=== PATIENT | female | born 1980 | race Caucasian/White ===

== ENCOUNTER 2021-09-18 12:06 | Inpatient (IN) | payer OTHER, MEDICAID ==
[~2021-09-18] VITALS: Ht 162.6 cm; Wt 91.1 kg
--- NOTE | ~2021-09-18 | EMS ---
[address] [address] EMS Patient Care Report Name: DOREEN CLAIRE Room: [facility]..#: [id number] Admission: Attend Phys: Discharge: Date of : 84 Report #: [id number] THIS REPORT FOR: //name// Report Transmitted: 09/18/2021 12:35 EMS Care Summary KARINE Reddy [place] Incident 1225 @ 09/18/2021 11:20 Incident Location [address] [place] [address] Patient DOREEN CLAIRE Female, 41 Years 1980 Patient Address [address] [place] [address] Patient History Hypertension (HTN), Patient Allergies , Patient Medications Lyrica, Lisinopril, Chief Complaint Nausea Disposition Transported No Lights/[place] Dispatch Reason Sick Person Transported To [facility] Narrative Dispatched to address noted for a person with COVID-19 that is nauseous. [facility] en route and on scene at time noted. Arrived and found the of the patient waving us down. stated that his is naked on the bathroom floor and has COVID-19. Patient has been refusing food for the past [address] [address] EMS Patient Care Report Name: DOREEN CLAIRE Room: [facility]#: [id number] Admission: Attend Phys: Discharge: Date of : 84 Report #: [id number] has been nauseous and vomiting as well as weak and short of breath. Patient was found as he stated, alert and oriented on the floor. Patient did not appear to have any life threats or be in shock. Patient was able to sit up with help and we had family gather some clothes for her to put on. Patient stated some mild shortness of breath as a secondary complaint and stated that she did not care what hospital we took her to. Patient was able to walk to stretcher outside and was then buckled in. [facility] where on high volume and having just come from [facility] I informed the patient that she may have an extended care time there. [facility] was then chosen and family agreed to it. Once in ambulance, vitals where taken at time noted and oxygen saturation was low as noted. O2 and oral zofran given along with an emesis bag. Patient stated that she did not want to live like this anymore and wanted it to go away. While en route, vitals where taken at time noted. Patient had no major change noted. Radio report was given at time noted. Arrived and took the patient to triage to be checked in. RN was given verbal report and signed for patient and patient signed for self. END REPORT EMT-P William Chen Initial Vitals @11:40SpO2: 84, @11:48SpO2: 90, @11:53SpO2: 90, @11:56SpO2: 90, @11:40P: 116,R: 16,BP: 146/72, @11:56P: 99,R: 16,BP: 115/75, @11:40GCS: 15, @11:56GCS: 15, @11:34 Assessments @11:34MENTAL:SKIN:HEENT:LUNG SOUNDS:ABDOMEN:PELVIS//GI:EXTREMITIES:PULSE:NEURO: Impression COVID-19 - Confirmed by testing Procedures @11:41 Oxygen Complications: , Response: Unchanged @11:44 Ondansetron - 8.000 Milligrams (mg) - Oral Response: Unchanged Timeline 11:45,Call Received 10:58,Dispatch Notified 10:58,Psap Call 11:20,Dispatched 11:20,[place] [address] EMS Patient Care Report Name: DOREEN CLAIRE Room: [facility].#: [id number] Admission: Attend Phys: Discharge: Date of : 84 Report #: [id number] 11:32,On Scene 11:34,At Patient 11:34,BP: / M,PULSE: ,RR: R,SPO2: Ox,ETCO2: ,BG: ,PAIN: ,GCS: , 11:40,BP: / M,PULSE: ,RR: R,SPO2: 84 Ox,ETCO2: ,BG: ,PAIN: ,GCS: , 11:40,BP: 146/72 M,PULSE: 116,RR: 16 R,SPO2: Ox,ETCO2: ,BG: ,PAIN: ,GCS: , 11:40,BP: / M,PULSE: ,RR: R,SPO2: Ox,ETCO2: ,BG: ,PAIN: ,GCS: 15, 11:41,Oxygen Complications: ,,Response: Unchanged 11:44,Depart Scene 11:44,Ondansetron - 8.000 Milligrams (mg) - Oral,Response: Unchanged 11:48,BP: / M,PULSE: ,RR: R,SPO2: 90 Ox,ETCO2: ,BG: ,PAIN: ,GCS: , 11:53,BP: / M,PULSE: ,RR: R,SPO2: 90 Ox,ETCO2: ,BG: ,PAIN: ,GCS: , 11:56,BP: / M,PULSE: ,RR: R,SPO2: 90 Ox,ETCO2: ,BG: ,PAIN: ,GCS: , 11:56,BP: 115/75 M,PULSE: 99,RR: 16 R,SPO2: Ox,ETCO2: ,BG: ,PAIN: ,GCS: , 11:56,BP: / M,PULSE: ,RR: R,SPO2: Ox,ETCO2: ,BG: ,PAIN: ,GCS: 15, 12:01,At Destination 12:11,Call Closed Disclaimer v1.1 Copyright 2021 [employer] This EMS Care Summary contains data elements from the applicable legal record (which may be displayed differently). It is designed to provide pertinent information for the following purposes: continuity of care, clinical quality, and state data reporting. The complete legal record is available to ED staff and administrators of the receiving hospital in [employer] Patient Tracker. All data is provided "as is."
[2021-09-18 12:25] VITALS: BP 110/68
[2021-09-18] MEDS ORDERED: LISINOPRIL-HCT1 EAC2 PO (12:36)
[2021-09-18] MEDS ORDERED: LYRICA25 MG PO (12:36)
[2021-09-18] MEDS ORDERED: CARBAMAZEPINE100 M2 PO (12:36)
--- NOTE | 2021-09-18 12:37 | NUR ---
PT TRIAGED IN THE TRIAGE ROOM. PT HAS EVEN AND UNLABORED RR. PT IS ABLE TO SPEAK IN FULL SENTENCES. PT PLACED ON O2 IN THE TRIAGE ROOM WHILE SITTING IN A WHEELCHAIR. THIS NURSE WENT TO THE BACK TO NOTIFIY DR. CANDELARIO OF LOW O2 SAT AND TO SEE IF THERE WAS AN AVAILABLE ROOM. ED REGISTRATION CALLED AND PT WAS LYING ON THE FLOOR IN TRIAGE. PT SAYING SHE NEEDS TO LAY DOWN. PT NOT WANTING TO COOPERATE. THIS RN GOT HELP OF BOLT MAN AND PT WAS ASSISTED BACK TO THE WHEELCHAIR. PT WAS THEN TAKEN TO ED ROOM #16. PT RR IS EVEN AND UNLABORED. PT COLOR IS PINK. O2 SAT 94%.
[2021-09-18 13:21] LABS: ABSOLUTE LYMPHOCYTES 0.9 thou/uL (0.8-5.3); ABSOLUTE MONOCYTES 0.3 thou/uL (0.0-1.2); ABSOLUTE NEUTROPHILS 4.9 thou/uL (1.6-8.1); BASOPHILS 0.1 %; HEMOGLOBIN 13.4 gm/dL (12.0-15.0); LYMPHOCYTES 14.3 %; MCH 32.7 pg (26.0-34.0); MCHC 35.3 g/dL (28.0-37.0); MCV 92.6 fL (80.0-100.0); MONOCYTES 5.2 %; MPV 7.8 fl. (7.2-11.1); NUCLEATED RBCS 0 /100WBC; PLATELET COUNT* 294 thou/uL (150-400); POLYS 80.4 %; RDW-CV 14.1 % (10.5-14.5); WBC 6.1 thou/uL (4.0-11.0)
[2021-09-18 13:29] LABS: CREATININE 1.1 mg/dL (0.6-1.3)
[2021-09-18 13:40] LABS: ALBUMIN 3.4 g/dL (3.4-5.0); TOTAL BILIRUBIN 0.3 mg/dL (<0.1-1.0); TOTAL PROTEIN 7.8 g/dL (6.4-8.2)
[2021-09-18] MEDS ORDERED: LISINOPRIL-HCT1 EAC1 PO (17:48)
[2021-09-18 20:18] LABS: PCO2 29.9 mmHg (35.0-45.0); pH 7.426 (7.340-7.450)
[2021-09-18 21:28] VITALS: BP 106/64
[2021-09-19 02:29] VITALS: BP 117/75
[2021-09-19 03:29] LABS: HEMATOCRIT 36.9 % (37.0-47.0); HEMOGLOBIN 12.7 gm/dL (12.0-15.0); MCH 32.3 pg (26.0-34.0); MCHC 34.3 g/dL (28.0-37.0); MCV 94.2 fL (80.0-100.0); MPV 7.7 fl. (7.2-11.1); RBC 3.92 mil/uL (4.20-5.00); RDW-CV 14.4 % (10.5-14.5); WBC 7.4 thou/uL (4.0-11.0)
[2021-09-19 04:06] LABS: CALCIUM 7.6 mg/dL (8.5-10.1); CREATININE 0.9 mg/dL (0.6-1.3); MAGNESIUM 2.3 mg/dL (1.8-2.4); TOTAL BILIRUBIN 0.3 mg/dL (<0.1-1.0); TOTAL PROTEIN 7.2 g/dL (6.4-8.2)
[2021-09-19 06:33] VITALS: BP 111/68
--- NOTE | 2021-09-19 06:51 | NUR ---
PT HAD AN UNWITTNESSED FAL WHILE HURRYING TO GET TO THE COMMODE. PT STATED SHE THOUGHT SHE WAS GOING TO BE INCONTINENT AND WAS RUSHING. NO NOTED INJURIES. PT DENIES ANY PAIN. NOTIFIED CHARGE NURSE REGINO PHILLIPS AND DR METCALF. REINFORCED CALL BELLUSE BED ALARM ON.
[2021-09-19 10:01] VITALS: BP 113/57
--- NOTE | 2021-09-19 13:17 | EKG ---
[place] [address] ELECTROCARDIOGRAM REPORT Name: DOREEN CLAIRE Room: [place] [address] ADM IN [facility]#: [id number] Admission: 09/18/21 Attend Phys: Dilshad Steward Discharge: Date of : 84 Date of Service: 09/18/21 1249 Report #: [id number] THIS REPORT FOR: //name// [facility] ED Test Date: 2021-09-18 Test Time: 12:49:20 Pat Name: DOREEN CLAIRE Department: Room: [facility] Gender: F Treasury Assistant: MILAGROS : 1980 Requested By: Allen Gray Order Number: [id number] MD: Duane Hatfield Measurements Intervals [place] Rate: 104 P: 56 IN: 158 QRS: 29 QRSD: 98 T: 70 QT: 350 QTc: 461 Interpretive Statements Sinus tachycardia RSR' in V1 or V2, right VCD Nonspecific T abnrm, anterolateral leads; consider ischemia Baseline wander in lead(s) V1,V2 No previous ECG available for comparison Electronically Signed On 09-19-2021 13:16:50 FINANCIAL SERVICES AGENT by Duane Hatfield [email or web address] <ELECTRONICALLY SIGNED> By: Duane Hatfield MD, FAC 09/19/21 1316 1249 1249 Duane Hatfield MD, FAC /EPI
[2021-09-19 14:33] VITALS: BP 101/62
--- NOTE | 2021-09-19 18:04 | NUR ---
PT SUSTAINING 87-89% ON HIGH FLOW. RESPIRATORY CALLED TO INCREASE OXYGEN ON MACHINE.
[2021-09-19 18:27] VITALS: BP 111/60
--- NOTE | 2021-09-19 20:00 | NUR ---
THIS NURSE TO BEDSIDE TO CHECK ON PATIENT DUE TO OXYGEN SATS DROPPING ON THE CENTRAL MONITOR, SHOWING OXYGEN SAT 77% WITH GOOD WAVEFORM. AT BEDSIDE, THIS NURSE FINDS PATIENT ON BEDSIDE COMMODE WITHOUT HER OXYGEN ON. THIS NURSE EDUCATED PATIENT ON THE IMPORTANCE OF LEAVING HER OXYGEN ON. PATIENT VERBALIZES UNDERSTANDING. THIS NURSE HELPED PATIENT PUT HER OXYGEN BACK ON AND HELPED BACK IN BED.
--- NOTE | 2021-09-19 21:30 | NUR ---
THIS NURSE BACK TO PATIENT BEDSIDE DUE TO OXYGEN SAT LEVELS DROPPING ON THE MONITOR. THIS NURSE EDUCATED PATIENT ON LEAVING OXYGEN IN HER NOSE. PT STATES "I DON'T WANT TO, I JUST WANT TO ". DR. LUNSFORD PULLED TO PATIENT BEDSIDE TO EDUCATE PATIENT ON THE IMPORTANCE OF LEAVING OXYGEN IN HER NOSE. PATIENT FINALLY AGREED TO LEAVE OXYGEN IN HER. PT SATS 85-89% ON HI-UMM OXYGEN AT 40 L.
[2021-09-19 22:27] VITALS: BP 114/63
--- NOTE | 2021-09-19 22:30 | NUR ---
THIS NURSE TO PATIENT BEDSIDE AGAIN FOR OXYGEN SAT ALARM SAYING HER OXYGEN SATS WERE IN THE 60S. RT CALLED TO BEDSIDE TO EVALUATE PATIENT AND PLACE HER ON BIPAP AT THIS TIME. PT AGREED TO WEARING THE BIPAP MASK AND LEAVING IT ON.
[2021-09-19 22:33] LABS: BE 0.9 mmol/L (-2 to +3); PCO2 32.6 mmHg (35.0-45.0); pH 7.482 (7.340-7.450)
--- NOTE | 2021-09-19 22:39 | NUR ---
PT PLACED ON BIPAP AT THIS TIME.
--- NOTE | 2021-09-19 22:50 | NUR ---
THIS NURSE TO PATIENT BEDSIDE AGAIN FOR OXYGEN SAT LEVELS SHOWING IN THE 40'S. AT BEDSIDE, THIS NURSE FOUND PATIENT NOT WEARING HER BIPAP MASK AT ALL. PATIENT STATES "I DON'T WANT TO!" THIS NURSE EDUCATED PATIENT ON THE IMPORTANCE OF PUTTING HER MASK BACK ON AND LEAVING IT ON. PT REFUSING BIPAP MASK AT THIS TIME. OXYGEN SATS REMAIN IN THE 40'S. PT ATTEMPTING TO CLIMB OUT OF BED WITH HER OXYGEN SATS DROPPING TO 29% ON ROOM AIR DUE TO HER REFUSING ALL OXYGEN. DR. LUNSFORD CALLED TO BEDSIDE TO EVAULATE PATIENT. PATIENT ASSISTED BACK INTO BED AND PREPARED FOR INTUBATION.
--- NOTE | 2021-09-19 23:00 | NUR ---
MEDICATIONS GIVEN TO PREPARE FOR INTUBATION, SEE EMAR. PT INTUBATED AT THIS TIME.
[2021-09-20] VITALS (7 sets, daily range): BP systolic 99–123; BP diastolic 61–83
--- NOTE | 2021-09-20 00:30 | NUR ---
VERSED DRIP INITIATED AT THIS TIME, INFUSING INTO R SUBCLAVIAN CENTRAL LINE. MEDICATION PUT IN BY PHARMACY BUT DOES NOT APPEAR ON THIS NURSE'S EMAR TO BE SCANNED.
[2021-09-20 00:42] LABS: PCO2 33.2 mmHg (35.0-45.0); PO2 63.4 mmHg (75.0-100.0); pH 7.431 (7.340-7.450)
[2021-09-20 03:54] LABS: HEMATOCRIT 29.8 % (37.0-47.0); MCH 33.2 pg (26.0-34.0); MCHC 35.1 g/dL (28.0-37.0); MCV 94.7 fL (80.0-100.0); MPV 7.8 fl. (7.2-11.1); RBC 3.15 mil/uL (4.20-5.00); RDW-CV 14.7 % (10.5-14.5); WBC 5.2 thou/uL (4.0-11.0)
[2021-09-20 04:17] LABS: CREATININE 0.8 mg/dL (0.6-1.3)
[2021-09-20 04:27] LABS: POTASSIUM 2.4 mmol/L (3.5-5.1)
[2021-09-20 04:33] LABS: HEMOGLOBIN 10.5 gm/dL (12.0-15.0)
--- NOTE | 2021-09-20 12:28 | NUR ---
Pt is admitted to the hospital on 09/18/21 with Covid 19/Respiratory Failure. Pt has now been moved to the ICU and is Intubated and Sedated. Called enriqueta Moore at: to complete assessment. Spoke both to dtr and spouse of whom pt lives with in a house with stairs to enter. Pt was previously indepedent in ADL's and Mobility. Pt fills prescription at the [facility] on [address] in [place]. Pt has seen her PCP in the last year. No hs of HH/SNF/ or DME. Spouse reports pt does not have a DPOA. Daughter tearful during the conversation - provided empathy and support. CM to continue to follow for discharge planning.
--- NOTE | 2021-09-20 19:24 | NUR ---
PT ARRIVED TO ICU 1 AT 0850. PT INTUBATED AND ON VENTILATOR. SEE CHARTING FOR SETTING. OGT TO LIS. ZAMORA INTACT AND PATENT DRAINING CIELO URINE TO BEDSIDE BAG. NO ACUTE DISTRESS AT THAT TIME PT HAS HAD SEVERAL EPISODES OF DESATING. PT RECOVERS WITH REPOSITONING AND SUCTIONING. MONITORS INTACT. WILL CONTINUE OT MONITOR
[2021-09-21] VITALS (30 sets, daily range): BP systolic 96–122; BP diastolic 54–82
[2021-09-21 00:51] LABS: HEMATOCRIT 36.3 % (37.0-47.0); MCHC 35.2 g/dL (28.0-37.0); MCV 93.7 fL (80.0-100.0); NUCLEATED RBCS 0 /100WBC; PLATELET COUNT* 361 thou/uL (150-400); RBC 3.87 mil/uL (4.20-5.00); WBC 8.2 thou/uL (4.0-11.0)
[2021-09-21 00:53] LABS: HEMOGLOBIN 12.8 gm/dL (12.0-15.0)
[2021-09-21 00:59] LABS: ALBUMIN 2.4 g/dL (3.4-5.0); CREATININE 0.7 mg/dL (0.6-1.3); MAGNESIUM 2.2 mg/dL (1.8-2.4); TOTAL BILIRUBIN 0.7 mg/dL (<0.1-1.0); TOTAL PROTEIN 6.6 g/dL (6.4-8.2)
[2021-09-21 01:00] LABS: POTASSIUM 3.6 mmol/L (3.5-5.1)
[2021-09-21 02:23] LABS: ABSOLUTE LYMPHOCYTES 0.7 thou/uL (0.8-5.3); ABSOLUTE MONOCYTES 0.4 thou/uL (0.0-1.2); ABSOLUTE NEUTROPHILS 7.1 thou/uL (1.6-8.1)
[2021-09-21 02:24] LABS: PLATELET ESTIMATE ADEQUATE
[2021-09-21 07:57] LABS: BE -0.8 mmol/L (-2 to +3); PCO2 34.8 mmHg (35.0-45.0); PO2 75.6 mmHg (75.0-100.0); pH 7.435 (7.340-7.450)
--- NOTE | 2021-09-21 15:27 | NUR ---
ICU Rounds: Remains Intubated and Sedated Isolation: Presently in Covid Isolation Intubated: 09/20/21 Living Situation: Lives with spouse and daughter DPOA: None Oxyen Needs: 60%Fio2 and 11 of Peep CM to continue to follow for discharge needs.
--- NOTE | 2021-09-21 22:37 | NUR ---
I ASSUMED CARE OF THE PATIENT FROM [facility] AN ICU TRANSFER AT 1740. SHE IS SEDATED AND INTUBATED. BED IS IN THE LOW LOCKED POSITION AND ISOLATION IS MAINTAINED. PATIENT NEEDS ARE MET DURING HOURLY ROUNDING. CHAO WOULD LIKE FOR THE PATIENT TO PRONE AFTER TRANSFER. TUBE FEEDS SHOULD BE RESUMED OF 2 CARLOS WITH A GOAL OF 35. PROPOFOL IS TO BE TITRATED TO OFF DUE TO HIGH TRIGLYCIRIDES. FECAL MANAGMENT SYSTEM IS IN PLACE. SHE WITHDRAWLS TO PAIN AND IS IN SOFT RESTRAINTS. WILL CONTINUE TO MONITOR.
[2021-09-22] VITALS (17 sets, daily range): BP systolic 100–129; BP diastolic 60–83
[2021-09-22 04:26] LABS: ABSOLUTE LYMPHOCYTES 0.4 thou/uL (0.8-5.3); ABSOLUTE MONOCYTES 0.4 thou/uL (0.0-1.2); ABSOLUTE NEUTROPHILS 9.3 thou/uL (1.6-8.1); HEMATOCRIT 32.6 % (37.0-47.0); LYMPHOCYTES 4.2 %; MCH 31.9 pg (26.0-34.0); MCHC 33.6 g/dL (28.0-37.0); MCV 95.2 fL (80.0-100.0); MONOCYTES 4.4 %; MPV 7.8 fl. (7.2-11.1); NUCLEATED RBCS 0 /100WBC; PLATELET COUNT* 397 thou/uL (150-400); POLYS 91.4 %; RBC 3.43 mil/uL (4.20-5.00); RDW-CV 15.1 % (10.5-14.5); WBC 10.2 thou/uL (4.0-11.0)
[2021-09-22 04:48] LABS: CALCIUM 7.6 mg/dL (8.5-10.1); CREATININE 0.7 mg/dL (0.6-1.3); MAGNESIUM 2.2 mg/dL (1.8-2.4); POTASSIUM 3.5 mmol/L (3.5-5.1); TOTAL BILIRUBIN 0.4 mg/dL (<0.1-1.0); TOTAL PROTEIN 6.4 g/dL (6.4-8.2)
[2021-09-22 04:59] LABS: PHOSPHORUS* 2.2 mg/dL (2.5-4.9)
[2021-09-22 09:59] LABS: BE -2.4 mmol/L (-2 to +3); PCO2 28.6 mmHg (35.0-45.0)
[2021-09-22 10:02] LABS: PO2 58.7 mmHg (75.0-100.0)
--- NOTE | 2021-09-22 16:00 | NUR ---
ASSUMED CARE OF PT FROM MARY PLASCENCIA RN. PLEASE SEE DOCUMENTED ASSESSMENT. PT CURRENTLY ON FENTANYL, VERSED, AND PROPOFOL GTTS. PT WILL TRY TO OPEN EYES TO COMMAND. SINUS TACHY NOTED ON MONITOR. LUNGS COARSE. PT HAS RIGHT UPPER ARM PICC. DR. GUIDRY HERE. NEW ORDERS RCV'D. PT GIVEN ALBUMIN, THEN LASIX. POTASSIUM STARTED AFTER LASIX ADMINISTRATION. TUBE FEEDS WILL MOST LIKELY BE STARTED TOMORROW PER DR. GUIDRY. ET ADVANCED 2 CM BY RT, CONFIRMED BY XRAY. PT TO PRONE IF TOLERATED. PER DR. GUIDRY, NURSING TO DC PROPOFOL. CAN GO UP TO MAX DOSE OF VERSED 15MG/HOUR AND FENTANYL 150 MCG/HOUR. PROPOFOL WAS DC'D, FENTANYL GTT INCREASED TO 150 MCG/HR. REPORT GIVEN TO LINA YU.
--- NOTE | 2021-09-22 17:31 | NUR ---
CM FOLLOWUP PT NOT MED CLEAR AND ON VENT. CM TO FOLLOW FOR FUTURE DC NEEDS.
--- NOTE | 2021-09-22 17:52 | NUR ---
Patient restful on the ventilator with Fentanyl 100 mcg/hr, Versed 1omg/hr and Propofol 5mcg/kg/min. Spoke with daughter today and update provided. No tube feeding infusing at this time with potential to prone. HR Sinus Tach, BP with in normal limits. Dark urine in sexton bag. soft bilat wrist restraints. R upper arn PIC line. Dr Moser here to see patient at this time.
--- NOTE | 2021-09-22 19:49 | NUR ---
PT WAS GIVEN 4 UNITS OF LISPRO INSULIN FOR BLOOD GLUCOSE LEVEL OF 222. UNABLE TO CHART IN COMPUTER D/T PROFILE BEING LOCKED.
[2021-09-23] VITALS (19 sets, daily range): BP systolic 11–123; BP diastolic 57–84
[2021-09-23 05:14] LABS: ABSOLUTE LYMPHOCYTES 0.7 thou/uL (0.8-5.3); ABSOLUTE MONOCYTES 0.6 thou/uL (0.0-1.2); ABSOLUTE NEUTROPHILS 10.7 thou/uL (1.6-8.1); BASOPHILS 0.1 %; EOSINOPHILS 0.1 %; HEMATOCRIT 29.9 % (37.0-47.0); HEMOGLOBIN 9.9 gm/dL (12.0-15.0); LYMPHOCYTES 5.8 %; MCH 32.3 pg (26.0-34.0); MCHC 33.3 g/dL (28.0-37.0); MCV 96.9 fL (80.0-100.0); MONOCYTES 4.7 %; MPV 8.1 fl. (7.2-11.1); NUCLEATED RBCS 0 /100WBC; POLYS 89.3 %; RBC 3.08 mil/uL (4.20-5.00); RDW-CV 15.3 % (10.5-14.5)
[2021-09-23 05:15] LABS: PLATELET COUNT* 511 thou/uL (150-400)
--- NOTE | 2021-09-23 05:23 | NUR ---
ASSUMED PT CARE AT APPROX 1930. PT IS SEDATED, GCS 6 (E1 V1 M4) PT IS TRACING ST ON THE OFFICE 365 CONSULTANT. ET TUBE INTACT, 23cm AT THE LIP, CONNECTED TO VENTILATOR AT PRESCRIBED SETTINGS. OG TUBE INTACT,60cm AT THE LIP, WITH SMALL AMOUNT BILOUS RESIDUAL. FECAL TUBE INTACT WITH MODERATE AMOUTN OF LIQUID YELLOWISH BROWN STOOL. ZAMORA CATHETER INTACT WITH DARK YELLOW TO CIELO OUTPUT. VERSED AND FENTANYL TITRATED ORDERED. FIO2 INCREASED TO 100% TO KEEP spO2 >92%. PT IS CLOSELY MONITORED.
[2021-09-23 05:35] LABS: ALBUMIN 2.6 g/dL (3.4-5.0); CREATININE 0.8 mg/dL (0.6-1.3); POTASSIUM 3.7 mmol/L (3.5-5.1); TOTAL BILIRUBIN 0.6 mg/dL (<0.1-1.0); TOTAL PROTEIN 6.5 g/dL (6.4-8.2)
[2021-09-23 05:51] LABS: PHOSPHORUS* 2.5 mg/dL (2.5-4.9)
--- NOTE | 2021-09-23 07:15 | NUR ---
CHANGE OF SHIFT REPORT GIVEN PATIENT SEDATED AND ON VENT ASSUMED PATIENT CARE
[2021-09-23 09:33] LABS: BE 5.2 mmol/L (-2 to +3); PCO2 38.1 mmHg (35.0-45.0); PO2 76.4 mmHg (75.0-100.0); pH 7.494 (7.340-7.450)
--- NOTE | 2021-09-23 11:00 | NUR ---
patient felt warm to touch temperature checked and temporal 99.5 dr notified and treated with tylenol and cool cloth to forehaed will continue to monitor
--- NOTE | 2021-09-23 13:14 | EKG ---
[place] [address] ELECTROCARDIOGRAM REPORT Name: DOREEN CLAIRE Room: [address] ADM IN [facility]#: [id number] Admission: 09/18/21 Attend Phys: Dilshad Steward Discharge: Date of : 84 Date of Service: 09/23/21 1250 Report #: [id number] THIS REPORT FOR: //name// [facility] Test Date: 2021-09-23 Test Time: 12:50:45 Pat Name: DOREEN CLAIRE Department: Room: [address] Gender: F Chief Knowledge Officer: ASAF : 1980 Requested By: Colby Boyle Order Number: [id number] Reading MD: Duane Hatfield Measurements Intervals [place] Rate: 135 P: 44 AK: 124 QRS: 42 QRSD: 67 T: 57 QT: 338 QTc: 507 Interpretive Statements Sinus tachycardia RSR' in V1 or V2, probably normal variant Minor nonspecific ST-T alterations Prolonged QT interval Baseline wander in lead(s) I,III,aVL,aVF Compared to ECG 09/18/2021 12:49:20 Sinus rate has increased Anterior precordial ST segment depression has remitted Prolonged QT interval now present Electronically Signed On 09-23-2021 13:14:25 WINDING INSPECTOR by Duane Hatfield [email or web address] <ELECTRONICALLY SIGNED> By: Duane Hatfield MD, [facility] 09/23/21 1314 1250 1250 Duane Hatfield MD, [facility] /EPI
--- NOTE | 2021-09-23 14:00 | NUR ---
patient with 2 rings on l hand removed due to edema secured and labeled and sent to security daughter also notified stated she would paick them up tomorrow
[2021-09-23 16:03] LABS: URINE BILIRUBIN NEGATIVE (Negative); URINE BLOOD 3+ (Negative); URINE CLARITY CLEAR; URINE COLOR YELLOW; URINE GLUCOSE-RANDOM NEGATIVE (Negative); URINE KETONES 1+ (Negative); URINE LEUKOCYTES-REFLEX NEGATIVE (Negative); URINE NITRITE-REFLEX NEGATIVE (Negative); URINE PROTEIN 2+ (Negative); URINE UROBILINOGEN 0.2 E.U./dl (0.2-1.0)
[2021-09-23 16:12] LABS: BACTERIA-REFLEX None Seen /HPF (None Seen); CASTS None Seen /LPF (None Seen); CRYSTALS None Seen /LPF (None Seen); SQUAMOUS NONE SEEN /LPF (0-3); URINE RBC 3-10 Few /HPF (0-2); URINE WBC-REFLEX None Seen /HPF (0-5)
--- NOTE | 2021-09-23 16:21 | NUR ---
CM FOLLOWUP PT NOT MED CLEAR AND ON VENT. CM TO FOLLOW FOR FUTURE DC NEEDS.
[2021-09-23 16:53] LABS: CREATININE 0.7 mg/dL (0.6-1.3); POTASSIUM 3.9 mmol/L (3.5-5.1)
[2021-09-24] VITALS (25 sets, daily range): BP systolic 92–124; BP diastolic 56–84
[2021-09-24 05:05] LABS: HEMATOCRIT 31.5 % (37.0-47.0); HEMOGLOBIN 10.7 gm/dL (12.0-15.0); MCHC 33.9 g/dL (28.0-37.0); MCV 97.5 fL (80.0-100.0); MPV 8.1 fl. (7.2-11.1); NUCLEATED RBCS 0 /100WBC; PLATELET COUNT* 491 thou/uL (150-400); RBC 3.24 mil/uL (4.20-5.00); RDW-CV 15.1 % (10.5-14.5); WBC 12.4 thou/uL (4.0-11.0)
--- NOTE | 2021-09-24 05:06 | NUR ---
ASSUMED PT CARE AT APPROX 1915. PT IS SEDATED, (E1V1M4) GCS 6. PT IS INTUBATED ON VENTILATOR AT PRESCRIBED SETTINGS. PT IS TRACING ST ON THE ASSEMBLY LEADER. PT HAS BEEN FEBRILE, Tmax 102.3, TYLENOL AND COOLING MEASURES DONE, WITH SOME IMPROVEMENT.IV ANTIBIOTICS STARTED ORDERED. SOME EPISODES OF DESATURATIONS NOTED, IMPROVES WITH SUCTIONING AND REPOSITIONING. PT ON CONTINUOUS TUBE FEEDING, WELL TOLERATED. PT IS CLOSELY MONITORED.
[2021-09-24 05:41] LABS: ALBUMIN 2.5 g/dL (3.4-5.0); CREATININE 0.9 mg/dL (0.6-1.3); POTASSIUM 3.9 mmol/L (3.5-5.1); TOTAL BILIRUBIN 0.5 mg/dL (<0.1-1.0); TOTAL PROTEIN 6.8 g/dL (6.4-8.2)
[2021-09-24 07:06] LABS: ABSOLUTE LYMPHOCYTES 0.7 thou/uL (0.8-5.3)
[2021-09-24 07:07] LABS: ABSOLUTE EOSINOPHILS 0.1 thou/uL (0.0-0.7); ABSOLUTE MONOCYTES 0.5 thou/uL (0.0-1.2); PLATELET ESTIMATE ADEQUATE
[2021-09-24 10:08] LABS: BE 3.1 mmol/L (-2 to +3); PCO2 40.4 mmHg (35.0-45.0); PO2 66.7 mmHg (75.0-100.0); pH 7.448 (7.340-7.450)
[2021-09-24 11:53] LABS: ABSOLUTE EOSINOPHILS 0.1 thou/uL (0.0-0.7); ABSOLUTE LYMPHOCYTES 0.8 thou/uL (0.8-5.3); ABSOLUTE MONOCYTES 0.6 thou/uL (0.0-1.2); BASOPHILS 0.2 %; EOSINOPHILS 0.6 %; HEMATOCRIT 30.7 % (37.0-47.0); HEMOGLOBIN 10.3 gm/dL (12.0-15.0); MCH 32.4 pg (26.0-34.0); MCHC 33.6 g/dL (28.0-37.0); MCV 96.4 fL (80.0-100.0); MONOCYTES 4.2 %; MPV 7.9 fl. (7.2-11.1); NUCLEATED RBCS 0 /100WBC; PLATELET COUNT* 478 thou/uL (150-400); RBC 3.18 mil/uL (4.20-5.00); RDW-CV 14.8 % (10.5-14.5); WBC 15.6 thou/uL (4.0-11.0)
[2021-09-24 12:00] LABS: CALCIUM 7.5 mg/dL (8.5-10.1); CREATININE 0.8 mg/dL (0.6-1.3); MAGNESIUM 1.9 mg/dL (1.8-2.4); POTASSIUM 3.9 mmol/L (3.5-5.1)
[2021-09-24 18:49] LABS: CREATININE 0.9 mg/dL (0.6-1.3); MAGNESIUM 2.1 mg/dL (1.8-2.4); POTASSIUM 3.6 mmol/L (3.5-5.1)
[2021-09-25] VITALS (25 sets, daily range): BP systolic 100–135; BP diastolic 58–86
[2021-09-25 04:42] LABS: ABSOLUTE BASOPHILS 0.1 thou/uL (0.0-0.2); ABSOLUTE MONOCYTES 0.6 thou/uL (0.0-1.2); ABSOLUTE NEUTROPHILS 15.1 thou/uL (1.6-8.1); BASOPHILS 0.4 %; EOSINOPHILS 0.3 %; HEMATOCRIT 34.3 % (37.0-47.0); HEMOGLOBIN 11.4 gm/dL (12.0-15.0); LYMPHOCYTES 6.1 %; MCH 32.3 pg (26.0-34.0); MCHC 33.2 g/dL (28.0-37.0); MCV 97.1 fL (80.0-100.0); MONOCYTES 3.3 %; MPV 8.2 fl. (7.2-11.1); NUCLEATED RBCS 0 /100WBC; PLATELET COUNT* 472 thou/uL (150-400); POLYS 89.9 %; RBC 3.53 mil/uL (4.20-5.00); RDW-CV 15.5 % (10.5-14.5); WBC 16.8 thou/uL (4.0-11.0)
[2021-09-25 05:00] LABS: PHOSPHORUS* 2.9 mg/dL (2.5-4.9)
--- NOTE | 2021-09-25 05:16 | NUR ---
ASSUMED PT CARE AT APPROX. 1945. PT IS INTUBATED AND SEDATED. RN AT BEDSIDE AT APPROX. 1999. PT'S IV PUMP ALARMING R/T FENTANYL GTT BAG NEEDING REPLACED. NEW MEDICATION BAG HUNG. RN BEGAN CALCULATING GTT'S AND NOTICED THE BAGS WERE NEEDING TO BE REPLACED V64-77EPM. RN PHONED PHARMACY TO CONFIRM. PHARMACY ADVISED RN TO RECHECK PUMP BC MEDICATION SHOULD LAST AT LEAST 6 HRS. THIS RN REACHED OUT TO COLLEAGUES AND DISCOVERED THE MEDICATION PUMP WAS PROGRAMMED FOR FENTANYL 150ML/HR. THE PUMP WAS REPROGRAMMED TO FENTANYL 150 MCG/HR. ASSOCIATE PROFESSOR OF MATHEMATICS NOTIFIED OF SITUATION. MD GUIDRY WAS NOTIFIED OF SITUATION. MD GUIDRY GAVE ORDER TO THIS RN TO "DECREASE FENTANYL TO 50MCG/HR AND ONLY TITRATE MEDICATON UP IF PT'S RR >30/MIN. OK TO INCREASE TO 150MCG/HR IF NEEDED IF RR>30". NO CHANGES IN PT'S VITAL SIGNS NOTED. NO ADVERSE EVENTS NOTED AT THE TIME AND DURING THE SHIFT. WILL CONT. TO MONITOR PT.
[2021-09-25 05:43] LABS: ALBUMIN 2.5 g/dL (3.4-5.0); CREATININE 1.1 mg/dL (0.6-1.3); MAGNESIUM 2.3 mg/dL (1.8-2.4); POTASSIUM 4.2 mmol/L (3.5-5.1); TOTAL BILIRUBIN 0.4 mg/dL (<0.1-1.0); TOTAL PROTEIN 7.3 g/dL (6.4-8.2)
--- NOTE | 2021-09-25 06:52 | NUR ---
PT HAD INCREASED HR 130-140'S DURING THE NOC. ORDER OBTAINED PER MD ESTRELLA TO GIVE METOPROLOL IVP. SEE EMAR FOR DETAILS. PT HR DECREASED TO 110-120'S. NO ACUTE CHANGES OCCURRED THIS SHIFT. WILL CONT. TO MONITOR.
[2021-09-25 09:24] LABS: BE 6.9 mmol/L (-2 to +3); PCO2 41.6 mmHg (35.0-45.0); PO2 91.6 mmHg (75.0-100.0); pH 7.488 (7.340-7.450)
[2021-09-26] VITALS (14 sets, daily range): BP systolic 98–125; BP diastolic 61–90
[2021-09-26 06:00] LABS: ABSOLUTE BASOPHILS 0.1 thou/uL (0.0-0.2); ABSOLUTE EOSINOPHILS 0.1 thou/uL (0.0-0.7); ABSOLUTE LYMPHOCYTES 1.2 thou/uL (0.8-5.3); ABSOLUTE MONOCYTES 0.6 thou/uL (0.0-1.2); ABSOLUTE NEUTROPHILS 15.7 thou/uL (1.6-8.1); BASOPHILS 0.6 %; EOSINOPHILS 0.5 %; HEMATOCRIT 30.9 % (37.0-47.0); HEMOGLOBIN 10.1 gm/dL (12.0-15.0); LYMPHOCYTES 6.6 %; MCH 31.6 pg (26.0-34.0); MCHC 32.8 g/dL (28.0-37.0); MCV 96.3 fL (80.0-100.0); MONOCYTES 3.2 %; MPV 8.3 fl. (7.2-11.1); NUCLEATED RBCS 0 /100WBC; POLYS 89.1 %; RBC 3.21 mil/uL (4.20-5.00); RDW-CV 15.1 % (10.5-14.5); WBC 17.6 thou/uL (4.0-11.0)
[2021-09-26 06:02] LABS: PLATELET COUNT* 375 thou/uL (150-400)
[2021-09-26 06:27] LABS: ALBUMIN 2.7 g/dL (3.4-5.0); CALCIUM 8.4 mg/dL (8.5-10.1); CREATININE 0.7 mg/dL (0.6-1.3); MAGNESIUM 2.3 mg/dL (1.8-2.4); POTASSIUM 3.9 mmol/L (3.5-5.1); TOTAL BILIRUBIN 0.5 mg/dL (<0.1-1.0); TOTAL PROTEIN 6.8 g/dL (6.4-8.2)
[2021-09-26 06:31] LABS: CALCIUM 8.3 mg/dL (8.5-10.1); CREATININE 0.7 mg/dL (0.6-1.3); PHOSPHORUS* 4.6 mg/dL (2.5-4.9); POTASSIUM 4.1 mmol/L (3.5-5.1)
[2021-09-26 11:12] LABS: BE 6.5 mmol/L (-2 to +3); PCO2 38.9 mmHg (35.0-45.0); PO2 67.5 mmHg (75.0-100.0); pH 7.505 (7.340-7.450)
--- NOTE | 2021-09-26 13:00 | NUR ---
ICU Rounds: Patient remains on vent (FiO2 100% and Peep 15). Continued sedation, abx and remdesevir. ID consulted for fevers. Patient may need to be paralyzed per physician during rounds. CM to continue to follow
[2021-09-26 17:23] LABS: BE 4.3 mmol/L (-2 to +3); PCO2 39.5 mmHg (35.0-45.0); PO2 88.4 mmHg (75.0-100.0); pH 7.472 (7.340-7.450)
--- NOTE | 2021-09-26 18:57 | CON ---
[address] [address] CONSULTATION Name: DOREEN CLAIRE Room: [address] IN M.R.#: [id number] Admission: 09/18/21 Attend Phys: Olivia Magallanes Discharge: Date of : 84 Report #: [id number] THIS REPORT FOR: cc: ELOY - Claudia family physician/PCP ELOY - No family physician/PCP Lee Moser MD ~ DATE OF CONSULTATION: 09/20/2021 REQUESTING PHYSICIAN: Dr. Boyle. INDICATION FOR CONSULTATION: Acute hypoxemic respiratory failure secondary to COVID-19. HISTORY OF PRESENT ILLNESS: A 41-year-old female with past medical history is as mentioned below. She is not vaccinated for COVID-19, has now presented with nausea and vomiting as well as fever, chills, cough and shortness of breath. She has been progressively becoming more hypoxemic since admission. Initially, she was maintaining O2 saturation on 2 liters nasal cannula. Eventually required endotracheal intubation for respiratory distress and hypoxemia. Currently, she is on 100% FiO2 with 11 of PEEP. Her O2 saturation has come up to the mid 90s; however, the patient's peak airway pressures were around 46-47 and she had low tidal volumes and her I:E ratio was reversed on assist control mode of ventilation. I have switched her over to pressure control. We are getting better peak airway pressures and her tidal volumes are also better; however, her respiratory rate in this mode is higher at around 44. The patient is on Precedex, Versed, and propofol for sedation. Blood pressure is borderline, potassium last was 2.4. She has received 2 bags of potassium since then. The patient is on the ventilator and is unable to provide a further history or review of systems. PAST MEDICAL HISTORY: Anxiety, depression. She also takes medications, which will be consistent with diagnosis of hypertension, although I do not see this documented on the records. She also takes Lyrica, the reason she takes Lyrica is not known to me at this time, same as the case for carbamazepine. SOCIAL HISTORY: There is no known history of smoking. No known history of heavy alcohol use or illegal drug use. CURRENT MEDICATIONS: List in [email or web address] reviewed. HOME MEDICATIONS: List in [email or web address] reviewed. ALLERGIES: SULFONAMIDE ANTIBIOTICS. FAMILY HISTORY: [place] [address] CONSULTATION Name: DAKOTAHDOREEN Osbaldo Room: [address]#: [id number] Admission: 09/18/21 Attend Phys: Olivia Magallanes Discharge: Date of : 84 Report #: [id number] PHYSICAL EXAMINATION: GENERAL: She is sedated as above. VITAL SIGNS: In the records reviewed. HEENT: Endotracheal tube was initially low and subsequently has been adjusted. NECK: Does not show raised JVP. CHEST: Breath sounds are bilaterally equal. There is a accessory muscle use. She is tachypneic. HEART: Regular. There is no murmur. ABDOMEN: Soft and nontender. EXTREMITIES: Lower extremities, trace edema. No calf tenderness. SKIN: Dry and intact. NEUROLOGIC: Moves all extremities equally to pain. Chest x-ray, labs and ABGs in [facility] reviewed. ASSESSMENT AND PLAN: 1. Acute hypoxemic respiratory failure secondary to COVID-19. We need to bring her respiratory rate down. I recommended that we go ahead and bolus her with 100 mcg of fentanyl. We will start a fentanyl drip up to a max of 150 if needed. The image to bring down the respiratory rate to around 30. We will then reassess. Meanwhile, I am continuing propofol, Versed as well as Precedex in the current rate. We will work on finding her optimal sedation regimen once the respiratory rate at an acceptable range. We will at that point also obtain a repeat ABG. The patient may benefit from proning; however, I would like to sedate her first and then reassess. 2. COVID-19. Agree with dexamethasone. I increased the dose. We will continue with remdesivir. If Actemra as available, then she will benefit from Actemra. 3. Pulmonary infiltrates, primarily secondary to COVID-19; however, I do agree with covering for secondary bacterial infections. She is on azithromycin and ceftriaxone. I feel that this is a reasonable regimen. We will do a sputum culture. We will also obtain a nasal swab for MRSA. 4. Severe hypokalemia/fluid overload. She appears to be total body fluid overloaded. Her last potassium was critically low at 2.4. Blood pressure is on the lower side as well. I do intend to diurese her; however, I would like to replace potassium first and therefore I did not at this time. 5. Deep venous thrombosis prophylaxis/evaluation for thromboembolic phenomena. Her D-dimer is elevated, we will start with obtaining a set of venous Dopplers. She is high risk for transport to [facility] chest at this time and therefore, I decided to hold off. Certainly, this could be a consideration later. We will give her intermediate dose Lovenox in the meantime. 6. Hyperglycemia, insulin sliding scale. 7. Gastrointestinal prophylaxis, Pepcid. [facility] [address] [place] [address] CONSULTATION Name: DOREEN CLAIRE Room: [address]#: [id number] Admission: 09/18/21 Attend Phys: Olivia Magallanes Discharge: Date of : 84 Report #: [id number] 8. Clostridium difficile prophylaxis, Lactinex. The patient is critically ill at this time. Total time spent providing critical care of this patient today is 41 minutes. <ELECTRONICALLY SIGNED> By: Lee Moser MD 09/26/21 1857 1332 1755Abronwyn Moser MD /nt
[2021-09-26 19:02] LABS: APTT 25.6 Seconds (25.0-31.3); INR 1.2; PROTIME 11.8 Seconds (9.20-11.50)
[2021-09-26 19:05] LABS: CREATININE 0.8 mg/dL (0.6-1.3); MAGNESIUM 1.8 mg/dL (1.8-2.4)
[2021-09-27] VITALS (46 sets, daily range): BP systolic 98–141; BP diastolic 56–94
[2021-09-27 02:06] LABS: GLYCOHEMOGLOBIN (HGB A1C) 7.1 % (4.8-5.6)
[2021-09-27 04:49] LABS: MCH 32.6 pg (26.0-34.0); MCHC 33.3 g/dL (28.0-37.0); MCV 97.8 fL (80.0-100.0); MPV 8.8 fl. (7.2-11.1); NUCLEATED RBCS 0 /100WBC; PLATELET COUNT* 336 thou/uL (150-400); RBC 3.06 mil/uL (4.20-5.00); RDW-CV 15.1 % (10.5-14.5)
[2021-09-27 05:44] LABS: ALBUMIN 2.3 g/dL (3.4-5.0); CALCIUM 7.6 mg/dL (8.5-10.1); CREATININE 0.9 mg/dL (0.6-1.3); TOTAL BILIRUBIN 0.4 mg/dL (<0.1-1.0); TOTAL PROTEIN 6.5 g/dL (6.4-8.2)
[2021-09-27 05:52] LABS: POTASSIUM 4.8 mmol/L (3.5-5.1)
[2021-09-27 07:03] LABS: ABSOLUTE LYMPHOCYTES 1.4 thou/uL (0.8-5.3); ABSOLUTE MONOCYTES 0.5 thou/uL (0.0-1.2); ABSOLUTE NEUTROPHILS 13.2 thou/uL (1.6-8.1); PLATELET ESTIMATE ADEQUATE
[2021-09-27 07:04] LABS: LARGE PLATELETS RARE
--- NOTE | 2021-09-27 09:00 | NUR ---
ICU Rounds: Patient remains on vent and sedated. Reached out to dtr Teresa to provide a check in call and emotional support. Dtr very teaful and asked if faceTime could be arranged for her and the patients . Dtr stated that they haven't seen the patient since she has been in the hospital. Patient experience manager practice notified who advised that she would arrange for a call. Dtr also stated that she is believes the patient isn't doing well and she would like to know if the tank refinisher can see the patient. Spiritual care notified of current request. Advised dtr to take things one day at a time and the medical team will stay in contact with her as the days continue. Dtr had no further questions. Provided CM contact information for support. Dtr very thankful of the care provided thus far for the patient. CM to continue to follow
[2021-09-27 12:20] LABS: BE 1.8 mmol/L (-2 to +3); PCO2 44.9 mmHg (35.0-45.0); PO2 68.4 mmHg (75.0-100.0); pH 7.398 (7.340-7.450)
--- NOTE | 2021-09-27 18:50 | NUR ---
Pt dropped O2 sats late this morning with position change. Sats dropped to low 60s. Gurgling noted with resps as if ET cuff deflated. Added some air to cuff, then called RT into room to evaluate. Cuff re-inflated and there were no more issues with cuff for remainder of shift. Desat occurred with CXR after initial episode, and pt not reposistioned for remainder of shift. Received albumin infusion and dose of furosemide per physician order; good urine output noted following dose. Art line began reading inaccurately and unable to draw blood from. Art line dc'd. BP remains stable without pressors. Will continue to monitor.
[2021-09-28] VITALS (40 sets, daily range): BP systolic 98–137; BP diastolic 61–104
[2021-09-28 11:32] LABS: BE 4.4 mmol/L (-2 to +3); PCO2 40.5 mmHg (35.0-45.0); pH 7.462 (7.340-7.450)
[2021-09-28 12:43] LABS: ABSOLUTE BASOPHILS 0.2 thou/uL (0.0-0.2); ABSOLUTE EOSINOPHILS 0.1 thou/uL (0.0-0.7); ABSOLUTE LYMPHOCYTES 1.8 thou/uL (0.8-5.3); ABSOLUTE MONOCYTES 0.4 thou/uL (0.0-1.2); ABSOLUTE NEUTROPHILS 13.8 thou/uL (1.6-8.1); BASOPHILS 1.3 %; EOSINOPHILS 0.8 %; HEMATOCRIT 28.4 % (37.0-47.0); HEMOGLOBIN 9.5 gm/dL (12.0-15.0); LYMPHOCYTES 11.2 %; MCH 32.5 pg (26.0-34.0); MCHC 33.3 g/dL (28.0-37.0); MCV 97.6 fL (80.0-100.0); MONOCYTES 2.5 %; MPV 8.7 fl. (7.2-11.1); NUCLEATED RBCS 0 /100WBC; POLYS 84.2 %; RBC 2.91 mil/uL (4.20-5.00); RDW-CV 14.5 % (10.5-14.5); WBC 16.4 thou/uL (4.0-11.0)
[2021-09-28 12:51] LABS: PLATELET COUNT* 240 thou/uL (150-400)
[2021-09-28 13:06] LABS: ALBUMIN 2.6 g/dL (3.4-5.0); CALCIUM 8.2 mg/dL (8.5-10.1); CREATININE 0.7 mg/dL (0.6-1.3); MAGNESIUM 1.9 mg/dL (1.8-2.4); POTASSIUM 3.4 mmol/L (3.5-5.1); TOTAL BILIRUBIN 0.4 mg/dL (<0.1-1.0); TOTAL PROTEIN 6.4 g/dL (6.4-8.2)
[2021-09-28 18:14] LABS: CALCIUM 7.7 mg/dL (8.5-10.1); CREATININE 0.8 mg/dL (0.6-1.3); MAGNESIUM 1.6 mg/dL (1.8-2.4); POTASSIUM 3.4 mmol/L (3.5-5.1)
--- NOTE | 2021-09-28 18:43 | NUR ---
PATIENT'S FENT AND VERS GTTS INCREASED DUE TO DESATURATION, TACHYPNEA, COUGHING WITH ANY STIMULATION AND RANDOMLY. RECIEVED TOCI THIS EVENING. LOW GRADE TEMPS TODAY. UPDATED DAUGHTER TWICE. IV LASIX GIVEN. GOOD URINE OUTPUT. TOLERATING FEEDS. POSITIVE BOWEL SOUNDS. 200 ML'S STOOL PER FMS. Q2 TURNS. ORAL CARE. INCREASED ORAL SECRETIONS.
[2021-09-29] VITALS (36 sets, daily range): BP systolic 89–131; BP diastolic 63–89
[2021-09-29 03:41] LABS: ABSOLUTE BASOPHILS 0.1 thou/uL (0.0-0.2); ABSOLUTE EOSINOPHILS 0.1 thou/uL (0.0-0.7); ABSOLUTE LYMPHOCYTES 0.9 thou/uL (0.8-5.3); ABSOLUTE MONOCYTES 0.2 thou/uL (0.0-1.2); ABSOLUTE NEUTROPHILS 12.4 thou/uL (1.6-8.1); BASOPHILS 0.7 %; EOSINOPHILS 0.6 %; HEMATOCRIT 28.8 % (37.0-47.0); HEMOGLOBIN 9.5 gm/dL (12.0-15.0); LYMPHOCYTES 6.4 %; MCH 32.3 pg (26.0-34.0); MCV 97.8 fL (80.0-100.0); MONOCYTES 1.1 %; NUCLEATED RBCS 0 /100WBC; PLATELET COUNT* 241 thou/uL (150-400); POLYS 91.2 %; RBC 2.94 mil/uL (4.20-5.00); RDW-CV 14.5 % (10.5-14.5); WBC 13.6 thou/uL (4.0-11.0)
[2021-09-29 03:53] LABS: ALBUMIN 2.3 g/dL (3.4-5.0); CALCIUM 7.3 mg/dL (8.5-10.1); CREATININE 0.8 mg/dL (0.6-1.3); MAGNESIUM 2.2 mg/dL (1.8-2.4); POTASSIUM 4.1 mmol/L (3.5-5.1); TOTAL BILIRUBIN 0.5 mg/dL (<0.1-1.0); TOTAL PROTEIN 6.4 g/dL (6.4-8.2)
--- NOTE | 2021-09-29 06:31 | NUR ---
PT RECEIVED LASIX AND ALDACTONE AND POTASSIUM. C. DIFF SENT TO LAB (RESULTS PENDING). P REMAINED AFEBRIL THROUGHOUT THE NIGHT. TMAX 99.8. PT'S BOTTOM MORE RED. WILL CONTINUE TO MONITOR AND ENDORSE Q2 TURNS. BLOOD SUGARS REMAIN UNCONTROLLED IN THE UPPER 200s AND LOW 300s. WILL CONTINUE TO MONITOR.
[2021-09-29 08:51] LABS: BE 5.9 mmol/L (-2 to +3); PCO2 47.1 mmHg (35.0-45.0); PO2 82.8 mmHg (75.0-100.0); pH 7.436 (7.340-7.450)
--- NOTE | 2021-09-29 16:16 | NUR ---
Pt remains intubated and sedated Intubated: 09/20/21 DPOA: None Living Situation: Lives with spouse and daughter Oxygen Needs: Fio2- 100% 15 of Peep D/C Plan: LTACH to continue to follow for discharge planning.
[2021-09-29 16:54] LABS: POTASSIUM 4.2 mmol/L (3.5-5.1)
[2021-09-29 17:25] LABS: CALCIUM 8.2 mg/dL (8.5-10.1); CREATININE 0.9 mg/dL (0.6-1.3); MAGNESIUM 2.2 mg/dL (1.8-2.4)
[2021-09-30] VITALS (34 sets, daily range): BP systolic 94–129; BP diastolic 62–84
[2021-09-30 04:49] LABS: ABSOLUTE BASOPHILS 0.1 thou/uL (0.0-0.2); ABSOLUTE MONOCYTES 0.3 thou/uL (0.0-1.2); ABSOLUTE NEUTROPHILS 13.7 thou/uL (1.6-8.1); BASOPHILS 0.3 %; EOSINOPHILS 0.3 %; HEMOGLOBIN 8.9 gm/dL (12.0-15.0); LYMPHOCYTES 6.7 %; MCH 32.3 pg (26.0-34.0); MCV 97.6 fL (80.0-100.0); MPV 9.2 fl. (7.2-11.1); NUCLEATED RBCS 0 /100WBC; PLATELET COUNT* 274 thou/uL (150-400); POLYS 90.7 %; RBC 2.77 mil/uL (4.20-5.00); RDW-CV 14.6 % (10.5-14.5); WBC 15.1 thou/uL (4.0-11.0)
[2021-09-30 05:59] LABS: ALBUMIN 3.6 g/dL (3.4-5.0); CALCIUM 8.4 mg/dL (8.5-10.1); CREATININE 0.8 mg/dL (0.6-1.3); POTASSIUM 4.2 mmol/L (3.5-5.1); TOTAL BILIRUBIN 0.4 mg/dL (<0.1-1.0); TOTAL PROTEIN 7.1 g/dL (6.4-8.2)
[2021-09-30 14:17] LABS: LIPASE 241 U/L (73-393); TRIGLYCERIDE 290 mg/dL (<150)
--- NOTE | 2021-09-30 16:46 | NUR ---
ICU Rounds: Pt remains intubated and sedated Isolation: Remains in Covid Isolation Intubated: 09/20/21 Living Situation: Lives with spouse and dtr Code Status: Full Code Oxygen Needs: 100% Fio2 Peep of 15 DOPA: None D/C Plan: Unknown Cm to continue to follow for discharge planning.
[2021-10-01] VITALS (44 sets, daily range): BP systolic 96–129; BP diastolic 52–76
[2021-10-01 04:36] LABS: HEMOGLOBIN 9.8 gm/dL (12.0-15.0); MCH 32.7 pg (26.0-34.0); MCHC 32.8 g/dL (28.0-37.0); MCV 99.7 fL (80.0-100.0); MPV 9.1 fl. (7.2-11.1); NUCLEATED RBCS 0 /100WBC; PLATELET COUNT* 337 thou/uL (150-400); RDW-CV 14.8 % (10.5-14.5); WBC 16.9 thou/uL (4.0-11.0)
[2021-10-01 08:01] LABS: ABSOLUTE LYMPHOCYTES 1.2 thou/uL (0.8-5.3)
[2021-10-01 08:02] LABS: ABSOLUTE MONOCYTES 0.8 thou/uL (0.0-1.2); ABSOLUTE NEUTROPHILS 14.9 thou/uL (1.6-8.1)
[2021-10-01 08:25] LABS: ALBUMIN 3.3 g/dL (3.4-5.0); CREATININE 0.7 mg/dL (0.6-1.3); MAGNESIUM 2.1 mg/dL (1.8-2.4); POTASSIUM 3.5 mmol/L (3.5-5.1); TOTAL BILIRUBIN 0.4 mg/dL (<0.1-1.0); TOTAL PROTEIN 6.6 g/dL (6.4-8.2)
[2021-10-01 08:30] LABS: CALCIUM 7.9 mg/dL (8.5-10.1)
--- NOTE | 2021-10-01 09:50 | NUR ---
ABG ATTEMPTED MULTIPLE TIMES BY TWO THERAPISTS, UNABLE TO DRAW
[2021-10-01 16:18] LABS: BE 6.5 mmol/L (-2 to +3); PCO2 45.1 mmHg (35.0-45.0); pH 7.457 (7.340-7.450)
--- NOTE | 2021-10-01 19:04 | NUR ---
PT CRITICALLY STABLE ON VENT. PRONE POSITION AT 1720-TOLERATING WELL. TITRATING PRECEDEX DOWN, CURRENT RATE AT 4MG/HR.
[2021-10-02] VITALS (46 sets, daily range): BP systolic 91–137; BP diastolic 50–91
--- NOTE | 2021-10-02 19:18 | NUR ---
Patient had a few episodes of destaturation. Awake and fighting the vent. Spoke with Dr Sanchez. Orders given to start PROP. Patient proned as well. Currently tolerating. Will continue to montior.
[2021-10-03] VITALS (143 sets, daily range): BP systolic 92–250; BP diastolic 46–147
[2021-10-03 04:17] LABS: ABSOLUTE EOSINOPHILS 0.4 thou/uL (0.0-0.7); ABSOLUTE LYMPHOCYTES 1.3 thou/uL (0.8-5.3); ABSOLUTE MONOCYTES 0.3 thou/uL (0.0-1.2); ABSOLUTE NEUTROPHILS 14.3 thou/uL (1.6-8.1); BASOPHILS 0.3 %; EOSINOPHILS 2.6 %; HEMATOCRIT 28.8 % (37.0-47.0); HEMOGLOBIN 9.8 gm/dL (12.0-15.0); LYMPHOCYTES 7.9 %; MCH 34.5 pg (26.0-34.0); MCHC 34.3 g/dL (28.0-37.0); MCV 100.6 fL (80.0-100.0); MONOCYTES 1.8 %; MPV 8.4 fl. (7.2-11.1); NUCLEATED RBCS 1 /100WBC; PLATELET COUNT* 321 thou/uL (150-400); POLYS 87.4 %; RBC 2.86 mil/uL (4.20-5.00); RDW-CV 15.5 % (10.5-14.5); WBC 16.4 thou/uL (4.0-11.0)
[2021-10-03 06:52] LABS: ALBUMIN 2.6 g/dL (3.4-5.0); CALCIUM 7.2 mg/dL (8.5-10.1); CREATININE 0.4 mg/dL (0.6-1.3); MAGNESIUM 2.1 mg/dL (1.8-2.4); PHOSPHORUS* 4.2 mg/dL (2.5-4.9); POTASSIUM 4.2 mmol/L (3.5-5.1); TOTAL BILIRUBIN 0.6 mg/dL (<0.1-1.0); TOTAL PROTEIN 5.1 g/dL (6.4-8.2)
[2021-10-03 12:10] LABS: CALCIUM 7.1 mg/dL (8.5-10.1); CREATININE 0.4 mg/dL (0.6-1.3); POTASSIUM 3.6 mmol/L (3.5-5.1)
[2021-10-03 12:56] LABS: BE 8.7 mmol/L (-2 to +3); pH 7.434 (7.340-7.450)
[2021-10-03 13:09] LABS: PCO2 52.5 mmHg (35.0-45.0); PO2 < 23.5 mmHg (75.0-100.0)
--- NOTE | 2021-10-03 13:51 | 2DMMODE ---
[place] [address] 2 D/M-MODE ECHOCARDIOGRAM Name: DOREEN CLAIRE Room: [address] IN [facility]#: [id number] Admission: 09/18/21 Attend Phys: Dilshad Steward Discharge: Date of : 84 Date of Service: 10/03/21 1351 Report #: [id number] THIS REPORT FOR: cc: FAM - No family physician/PCP FAM - No family physician/PCP Duane Hatfield MD [facility] ~ APPROVED REPORT Study performed: 10/03/2021 11:34:13 EXAM: Comprehensive 2D, Doppler, and color-flow Echocardiogram Patient Location: In-Patient Room #: 008 Status: routine BSA: 1.94 HR: 101 bpm BP: 95/52 mmHg Rhythm: NSR Other Information Study Quality: Good Indications Murmur 2D Dimensions IVSd: 9.58 (7-11mm) LVOT Diam: 19.81 (18-24mm) LVDd: 41.68 mm PWd: 9.34 (7-11mm) Ascending Ao: 24.94 (22-36mm) LVDs: 24.83 (25-40mm) Aortic Root: 30.57 mm Volumes Left Atrial Volume (Systole) LA ESV Index: 12.80 mL/m2 Aortic Valve AoV Peak Ben.: 1.33 m/s AO Peak Gr.: 7.03 mmHg LVOT Max P.97 mmHg AO Mean Gr.: 4.38 mmHg LVOT Mean P.57 mmHg LVOT Max V: 1.11 m/s AO V2 VTI: 21.67 cm LVOT Mean V: 0.74 m/s JM (VTI): 2.49 cm2 LVOT V1 VTI: 17.50 [place] [address] 2 D/M-MODE ECHOCARDIOGRAM Name: DOREEN CLAIRE Room: [address] IN [facility]#: [id number] Admission: 09/18/21 Attend Phys: Dilshad Steward Discharge: Date of : 84 Date of Service: 10/03/21 1351 Report #: [id number] Mitral Valve E/A Ratio: 1.12 MV Decel. Time: 118.10 ms MV E Max Ben.: 0.83 m/s MV PHT: 34.25 ms MVA (PHT): 6.42 cm2 TDI E/Lateral E': 6.92 E/Medial E': 10.38 Medial E' Ben.: 0.08 m/s Lateral E' Ben.: 0.12 m/s Pulmonary Valve PV Peak Ben.: 0.93 m/s PV Peak Gr.: 3.43 mmHg Tricuspid Valve RAP Estimate: 5.00 mmHg TR Peak Gr.: 28.31 mmHg RVSP: 33.00 mmHg PA Pressure: 33.00 mmHg Left Ventricle The left ventricle is normal size. There is normal LV segmental wall motion. There is normal left ventricular wall thickness. Left ventricular systolic function is normal. The left ventricular ejection fraction is within the normal range. LVEF is 60-65%. This study is not technically sufficient to allow evaluation of the LV diastolic function. Right Ventricle The right ventricle is normal size. The right ventricular systolic function is normal. Atria The left atrium size is normal. The right atrium size is normal. Aortic Valve The aortic valve is normal in structure. No aortic regurgitation is present. There is no aortic valvular stenosis. Mitral Valve The mitral valve is normal in structure. Trace mitral regurgitation. No evidence of mitral valve stenosis. Tricuspid Valve The tricuspid valve is normal in [place] [address] 2 D/M-MODE ECHOCARDIOGRAM Name: DAKOTAHDOREEN Osbaldo Room: [address]#: [id number] Admission: 09/18/21 Attend Phys: Dilshad Steward Discharge: Date of : 84 Date of Service: 10/03/21 1351 Report #: [id number] regurgitation. Mild pulmonary hypertension. Pulmonic Valve The pulmonary valve is normal in structure. There is no pulmonic valvular regurgitation. Great Vessels The aortic root is normal in size. IVC is normal in size and collapses >50% with inspiration. Pericardium There is no pericardial effusion. <Conclusion> The left ventricle is normal size. There is normal left ventricular wall thickness. Left ventricular systolic function is normal. The left ventricular ejection fraction is within the normal range. LVEF is 60-65%. The right ventricle is normal size. The left atrium size is normal. The aortic valve is normal in structure. The mitral valve is normal in structure. The tricuspid valve is normal in structure. Mild tricuspid regurgitation. Mild pulmonary hypertension. IVC is normal in size and collapses >50% with inspiration. There is no pericardial effusion. There is normal LV segmental wall motion. <ELECTRONICALLY SIGNED> By: Duane Hatfield MD, FACC 10/03/21 1351 1351 1351 Duane Hatfield MD, FACC /INF
[2021-10-03 14:20] LABS: BE 0.5 mmol/L (-2 to +3); PCO2 39.3 mmHg (35.0-45.0); PO2 75.3 mmHg (75.0-100.0)
--- NOTE | 2021-10-03 15:39 | NUR ---
ICU Rounds: Pt remains intubated and sedated Isolation: Was told pt would be taken out of isolation today, but during rounds she was still in isolation - will follow up with ID nurse - as we need to call family so they can visit. Intubated: 09/20/21 Living Situation: Lives with spouse and dtr DPOA - None Found Oxygen Needs: 100%Fi02 Pt continues to make limited progress. Will follow up about pt coming out of isolation and will contact family if confirmed so they can visit. Cm to continue to follow for discharge planning.
[2021-10-03 16:46] LABS: URINE BILIRUBIN NEGATIVE (Negative); URINE BLOOD 1+ (Negative); URINE CLARITY CLEAR; URINE COLOR YELLOW; URINE GLUCOSE-RANDOM NEGATIVE (Negative); URINE KETONES NEGATIVE (Negative); URINE LEUKOCYTES-REFLEX NEGATIVE (Negative); URINE NITRITE-REFLEX NEGATIVE (Negative); URINE PROTEIN NEGATIVE (Negative); URINE UROBILINOGEN 0.2 E.U./dl (0.2-1.0)
[2021-10-03 16:55] LABS: HYALINE CASTS 0-3 Few /LPF (None Seen); YEAST-REFLEX Present (None Seen)
[2021-10-03 16:56] LABS: BACTERIA-REFLEX None Seen /HPF (None Seen); CRYSTALS None Seen /LPF (None Seen); MUCUS None Seen strn/LPF (None Seen); SQUAMOUS NONE SEEN /LPF (0-3); URINE RBC 3-10 Few /HPF (0-2)
[2021-10-03 16:57] LABS: URINE WBC-REFLEX 0-5 Rare /HPF (0-5)
[2021-10-03 17:22] LABS: BE 1.1 mmol/L (-2 to +3); PCO2 43.5 mmHg (35.0-45.0); PO2 73.3 mmHg (75.0-100.0); pH 7.397 (7.340-7.450)
[2021-10-03 18:21] LABS: CALCIUM 6.8 mg/dL (8.5-10.1); CREATININE 0.4 mg/dL (0.6-1.3); MAGNESIUM 1.7 mg/dL (1.8-2.4)
[2021-10-03 18:22] LABS: POTASSIUM 2.6 mmol/L (3.5-5.1)
[2021-10-04] VITALS (39 sets, daily range): BP systolic 87–116; BP diastolic 45–74
[2021-10-04 04:30] LABS: HEMATOCRIT 29.8 % (37.0-47.0); HEMOGLOBIN 9.7 gm/dL (12.0-15.0); MCH 33.3 pg (26.0-34.0); MCHC 32.7 g/dL (28.0-37.0); MCV 101.8 fL (80.0-100.0); MPV 8.2 fl. (7.2-11.1); NUCLEATED RBCS 0 /100WBC; PLATELET COUNT* 343 thou/uL (150-400); RBC 2.92 mil/uL (4.20-5.00); RDW-CV 15.4 % (10.5-14.5); WBC 16.1 thou/uL (4.0-11.0)
[2021-10-04 07:34] LABS: ABSOLUTE EOSINOPHILS 0.5 thou/uL (0.0-0.7); ABSOLUTE LYMPHOCYTES 0.8 thou/uL (0.8-5.3); ABSOLUTE NEUTROPHILS 13.8 thou/uL (1.6-8.1); METAMYELOCYTES 1 %; PLATELET ESTIMATE ADEQUATE; POLYCHROMASIA 1+
[2021-10-04 07:35] LABS: ANISOCYTOSIS 1+
[2021-10-04 12:58] LABS: CALCIUM 8.2 mg/dL (8.5-10.1); CREATININE 0.4 mg/dL (0.6-1.3); POTASSIUM 3.8 mmol/L (3.5-5.1)
[2021-10-04 13:07] LABS: ALBUMIN 2.6 g/dL (3.4-5.0); MAGNESIUM 2.1 mg/dL (1.8-2.4); TOTAL BILIRUBIN 0.3 mg/dL (<0.1-1.0); TOTAL PROTEIN 5.6 g/dL (6.4-8.2)
[2021-10-04 13:57] LABS: BE 2.7 mmol/L (-2 to +3); PCO2 44.9 mmHg (35.0-45.0); pH 7.409 (7.340-7.450)
--- NOTE | 2021-10-04 14:10 | NUR ---
Confirmed with infectious disease nurse that she had in fact pulled pt out of Covid isolation. The signage is still up but called enriqueta Moore to report that pt was out of isolation and could receive one visitor per day. Intubated: 09/20/21 Living situation: Lives with daughter and spouse DPOA - none found 02 Needs: 95% Fio2 Peep of 15 D/c Plan - unknown at this time with not having a DPOA CM to continue to follow for discharge planning.
--- NOTE | 2021-10-04 19:40 | NUR ---
Pt's physical assessment remained fairly unremarkable with slight changes throughout this RN's shift. Pt was proned at 1630 with no difficulties. IV antibiotics administered. Dr. Moser ordered for Albumin, Lasiks, and another diuretic be given late this afternoon. Pt was having copious amounts of oral secretions, the secretions were a thick shayne brown color. Pt suctioned throughoughly, SpO2 sats slowly coming back up, pt was able to recover herself with little help from nursing staff/interventions. Pt's bottom has a red, yeasty rash covering the coccyx area, provider ordered Nystatin and Zinc Oxide to be placed on the affected area PRN. Pt's daughter was at her bedside for a majority of the day. Report passed on to LINA Turner.
[2021-10-05] VITALS (62 sets, daily range): BP systolic 94–133; BP diastolic 47–76
[2021-10-05 11:05] LABS: BE -0.7 mmol/L (-2 to +3); PCO2 44.4 mmHg (35.0-45.0); PO2 65.6 mmHg (75.0-100.0); pH 7.364 (7.340-7.450)
[2021-10-05 11:48] LABS: ABSOLUTE BASOPHILS 0.1 thou/uL (0.0-0.2); ABSOLUTE EOSINOPHILS 0.4 thou/uL (0.0-0.7); ABSOLUTE LYMPHOCYTES 0.8 thou/uL (0.8-5.3); ABSOLUTE MONOCYTES 0.4 thou/uL (0.0-1.2); ABSOLUTE NEUTROPHILS 12.6 thou/uL (1.6-8.1); BASOPHILS 0.4 %; EOSINOPHILS 3.1 %; HEMATOCRIT 26.7 % (37.0-47.0); HEMOGLOBIN 8.5 gm/dL (12.0-15.0); LYMPHOCYTES 5.9 %; MCH 33.4 pg (26.0-34.0); MCV 104.3 fL (80.0-100.0); MONOCYTES 2.5 %; NUCLEATED RBCS 0 /100WBC; PLATELET COUNT* 274 thou/uL (150-400); POLYS 88.1 %; RBC 2.56 mil/uL (4.20-5.00); RDW-CV 15.9 % (10.5-14.5); WBC 14.3 thou/uL (4.0-11.0)
[2021-10-05 12:05] LABS: APTT 27.8 Seconds (25.0-31.3); INR 1.1; PROTIME 11.3 Seconds (9.20-11.50)
[2021-10-05 12:06] LABS: ALBUMIN 3.3 g/dL (3.4-5.0); CALCIUM 8.3 mg/dL (8.5-10.1); CREATININE 0.5 mg/dL (0.6-1.3); TOTAL BILIRUBIN 0.4 mg/dL (<0.1-1.0)
--- NOTE | 2021-10-05 14:49 | NUR ---
PATIENT'S BAG WAS TAKEN BY MICHAEL CLAIRE (PATIENT'S SPOUSE)
--- NOTE | 2021-10-05 16:34 | NUR ---
ICU rounds: Continues to be intubated and Sedated Isolation: Currently out of Covid isolation Intubated: 09/21/21 Living Situation: Lives with spouse and daughter DPOA: None Found Oxygen Needs: 90%Fio2 Peep of 15 D/C Plan - LTACH Continue to communicate with dtr Teresa. Pt was taken out of isolation on 10/04/21 and this senior buyer planner called so that she and pt's spouse could take turns visiting. We have seen a small improvement with oxygen needs. Pt has improved from 100% Fio2 to 90%Fio2 Peep of 15. Hope to begin weaning trials soon - if needing trache and peg - likely will need to refer patient to LTACH on [place] side with not having a DPOA (as [facility] is reporting they will accept as long as family can provide consent). CM to continue to follow for discharge planning.
[2021-10-05 16:58] LABS: CALCIUM 9.1 mg/dL (8.5-10.1); CREATININE 0.5 mg/dL (0.6-1.3); POTASSIUM 3.7 mmol/L (3.5-5.1)
[2021-10-06] VITALS (20 sets, daily range): BP systolic 97–122; BP diastolic 51–67
[2021-10-06 05:55] LABS: ALBUMIN 3.2 g/dL (3.4-5.0); CALCIUM 8.7 mg/dL (8.5-10.1); CREATININE 0.5 mg/dL (0.6-1.3); MAGNESIUM 1.9 mg/dL (1.8-2.4); POTASSIUM 3.7 mmol/L (3.5-5.1); TOTAL BILIRUBIN 0.3 mg/dL (<0.1-1.0); TOTAL PROTEIN 6.6 g/dL (6.4-8.2)
[2021-10-06 05:56] LABS: PHOSPHORUS* 5.5 mg/dL (2.5-4.9)
[2021-10-06 06:26] LABS: ABSOLUTE BASOPHILS 0.1 thou/uL (0.0-0.2); ABSOLUTE EOSINOPHILS 0.4 thou/uL (0.0-0.7); ABSOLUTE LYMPHOCYTES 1.8 thou/uL (0.8-5.3); ABSOLUTE MONOCYTES 0.4 thou/uL (0.0-1.2); ABSOLUTE NEUTROPHILS 12.5 thou/uL (1.6-8.1); BASOPHILS 0.5 %; EOSINOPHILS 2.6 %; HEMATOCRIT 31.3 % (37.0-47.0); HEMOGLOBIN 10.3 gm/dL (12.0-15.0); LYMPHOCYTES 11.8 %; MCH 33.8 pg (26.0-34.0); MCV 102.5 fL (80.0-100.0); MONOCYTES 2.7 %; MPV 8.3 fl. (7.2-11.1); NUCLEATED RBCS 0 /100WBC; PLATELET COUNT* 344 thou/uL (150-400); POLYS 82.4 %; RBC 3.06 mil/uL (4.20-5.00); WBC 15.1 thou/uL (4.0-11.0)
[2021-10-06 08:26] LABS: BE 6.3 mmol/L (-2 to +3); PO2 62.9 mmHg (75.0-100.0)
[2021-10-06 08:29] LABS: PCO2 50.1 mmHg (35.0-45.0)
--- NOTE | 2021-10-06 14:07 | NUR ---
ICU Rounds: Remains intubated and sedated. Isolation: Pt currently out of Covid Isolation Code Status: Full code Intubated: 09/21/21 Living Situation: Lives with spouse and daughter - Teersa DPOA: None Found Oxygen Needs: 100% Fio2 Peep of 15 D/C Plan: LTACH Barriers to discharge - No DPOA Daughter continues to visit daily. Asking if pt does not improve and they decide to switch to comfort care if a Yarn Mercerizer Operator Helper could see her, discussed this would be arranged. Dtr remains hopeful that mother can be weaned off ventilator. CM to continue to follow for discharge planning.
--- NOTE | 2021-10-06 19:31 | NUR ---
PT PRONED AROUND 1500. LASIX GTT STARTED. GOOD URINE OUTPUT. LOW BLOOD GLUCOSE THIS AM. AND DAUGHTER SAID NO TRACH. STATES COMFORT CARE IN 4 DAYS IF NO IMPROVEMENT.
[2021-10-06 20:06] LABS: CALCIUM 8.9 mg/dL (8.5-10.1); CREATININE 0.6 mg/dL (0.6-1.3); MAGNESIUM 1.7 mg/dL (1.8-2.4); POTASSIUM 3.1 mmol/L (3.5-5.1)
[2021-10-07] VITALS (33 sets, daily range): BP systolic 89–205; BP diastolic 55–166
[2021-10-07 04:47] LABS: ABSOLUTE BASOPHILS 0.1 thou/uL (0.0-0.2); ABSOLUTE EOSINOPHILS 0.6 thou/uL (0.0-0.7); ABSOLUTE LYMPHOCYTES 1.5 thou/uL (0.8-5.3); ABSOLUTE MONOCYTES 0.5 thou/uL (0.0-1.2); ABSOLUTE NEUTROPHILS 16.6 thou/uL (1.6-8.1); BASOPHILS 0.3 %; EOSINOPHILS 2.9 %; HEMATOCRIT 36.9 % (37.0-47.0); HEMOGLOBIN 12.2 gm/dL (12.0-15.0); LYMPHOCYTES 7.7 %; MCH 33.5 pg (26.0-34.0); MCHC 33.2 g/dL (28.0-37.0); MCV 100.9 fL (80.0-100.0); MONOCYTES 2.8 %; MPV 8.5 fl. (7.2-11.1); NUCLEATED RBCS 0 /100WBC; PLATELET COUNT* 352 thou/uL (150-400); POLYS 86.3 %; RBC 3.65 mil/uL (4.20-5.00); WBC 19.2 thou/uL (4.0-11.0)
[2021-10-07 05:10] LABS: ALBUMIN 3.6 g/dL (3.4-5.0); CALCIUM 8.7 mg/dL (8.5-10.1); CREATININE 0.7 mg/dL (0.6-1.3); MAGNESIUM 2.3 mg/dL (1.8-2.4); POTASSIUM 3.9 mmol/L (3.5-5.1); TOTAL BILIRUBIN 0.5 mg/dL (<0.1-1.0); TOTAL PROTEIN 7.6 g/dL (6.4-8.2)
[2021-10-07 05:27] LABS: PHOSPHORUS* 6.8 mg/dL (2.5-4.9)
[2021-10-07 09:11] LABS: BE 4.7 mmol/L (-2 to +3); PCO2 44.5 mmHg (35.0-45.0); pH 7.439 (7.340-7.450)
--- NOTE | 2021-10-07 15:44 | NUR ---
ICU Rounds: Remains Intubated and sedated Isolation: Out of Covid Isolation Intubated: 09/21/21 Oxygen Needs: 100%Fio2 Living Situation: Lives with spouse and daughter DPOA: None Met with dtr - Teresa to provide support. During Team Meeting the doctor had reported family didn't know if they wanted pt to have a Peg/Trache. Teresa reports her mother wouldn't have wanted a Peg/Trache. Dtr reports they are giving pt the weekend to see if she makes signficant improvement otherwise may decide on 10/10/21 to switch to comfort care. A referral was made to [facility], but will see if pt improves over the weekend before approaching dtr again about LTACH. CM to continue to follow for discharge planning.
[2021-10-07 16:08] LABS: CALCIUM 8.5 mg/dL (8.5-10.1); CREATININE 0.7 mg/dL (0.6-1.3); MAGNESIUM 2.2 mg/dL (1.8-2.4)
[2021-10-07 16:20] LABS: POTASSIUM 2.4 mmol/L (3.5-5.1)
[2021-10-07 17:24] LABS: PO2 78.6 mmHg (75.0-100.0); pH 7.383 (7.340-7.450)
[2021-10-07 17:27] LABS: PCO2 63.2 mmHg (35.0-45.0)
--- NOTE | 2021-10-07 20:07 | NUR ---
At or around 1425, Dr. Moser ordered for this RN to administer 10mls of Vecuronium bromide to pt to see if the medication would create a positive change in the pt's oxygenation and SpO2 saturations. RN administered the Vecuronium per order. Pt became tachycardic, tachypnea noted, hypertensive, and agitated. Pt maxed on all her sedation. Dr. Moser verbal ordered for this RN to give 2mg of Ativan IVP STAT, then if pt continues to be tachycardic, start Propofol. Pt remained tachycardic with her HR in the 140s. Propofol started per protocol. Pt starting to settle down and stabilize. Per Dr. Moser, should the pt become hypotensive, start Neosyn. Will continue to monitor and make adjustments as needed/ordered.
[2021-10-08] VITALS (61 sets, daily range): BP systolic 98–128; BP diastolic 50–66
[2021-10-08 05:49] LABS: ABSOLUTE BASOPHILS 0.1 thou/uL (0.0-0.2); ABSOLUTE LYMPHOCYTES 2.4 thou/uL (0.8-5.3); ABSOLUTE MONOCYTES 0.8 thou/uL (0.0-1.2); ABSOLUTE NEUTROPHILS 15.9 thou/uL (1.6-8.1); BASOPHILS 0.7 %; EOSINOPHILS 0.2 %; HEMATOCRIT 35.4 % (37.0-47.0); HEMOGLOBIN 11.6 gm/dL (12.0-15.0); LYMPHOCYTES 12.6 %; MCH 33.6 pg (26.0-34.0); MCHC 32.7 g/dL (28.0-37.0); MCV 102.9 fL (80.0-100.0); MONOCYTES 4.1 %; MPV 8.8 fl. (7.2-11.1); NUCLEATED RBCS 0 /100WBC; PLATELET COUNT* 341 thou/uL (150-400); POLYS 82.4 %; RBC 3.44 mil/uL (4.20-5.00); RDW-CV 16.7 % (10.5-14.5); WBC 19.3 thou/uL (4.0-11.0)
[2021-10-08 06:02] LABS: ALBUMIN 3.2 g/dL (3.4-5.0); CALCIUM 8.2 mg/dL (8.5-10.1); CREATININE 0.7 mg/dL (0.6-1.3); MAGNESIUM 2.4 mg/dL (1.8-2.4); POTASSIUM 4.2 mmol/L (3.5-5.1); TOTAL BILIRUBIN 0.4 mg/dL (<0.1-1.0); TOTAL PROTEIN 6.8 g/dL (6.4-8.2)
[2021-10-08 06:18] LABS: PHOSPHORUS* 3.2 mg/dL (2.5-4.9)
[2021-10-08 06:50] LABS: APTT 26.4 Seconds (25.0-31.3); INR 1.2
[2021-10-08 10:06] LABS: BE 6.8 mmol/L (-2 to +3); PO2 74.9 mmHg (75.0-100.0); pH 7.388 (7.340-7.450)
[2021-10-08 10:21] LABS: PCO2 56.5 mmHg (35.0-45.0)
[2021-10-09] VITALS (70 sets, daily range): BP systolic 42–135; BP diastolic 40–72
[2021-10-09 04:46] LABS: HEMATOCRIT 35.6 % (37.0-47.0); HEMOGLOBIN 11.5 gm/dL (12.0-15.0); MCH 33.4 pg (26.0-34.0); MCHC 32.2 g/dL (28.0-37.0); MCV 103.5 fL (80.0-100.0); NUCLEATED RBCS 1 /100WBC; RBC 3.43 mil/uL (4.20-5.00); RDW-CV 16.8 % (10.5-14.5); WBC 18.5 thou/uL (4.0-11.0)
[2021-10-09 05:13] LABS: CALCIUM 7.9 mg/dL (8.5-10.1); CREATININE 0.7 mg/dL (0.6-1.3); MAGNESIUM 2.2 mg/dL (1.8-2.4); PHOSPHORUS* 3.8 mg/dL (2.5-4.9); TOTAL BILIRUBIN 0.4 mg/dL (<0.1-1.0); TOTAL PROTEIN 6.5 g/dL (6.4-8.2)
[2021-10-09 05:18] LABS: POTASSIUM 3.2 mmol/L (3.5-5.1)
[2021-10-09 05:42] LABS: PLATELET COUNT* 254 thou/uL (150-400)
--- NOTE | 2021-10-09 07:23 | NUR ---
PT BECAME TACHYCARDIC SHORTLY PRIOR TO 0600. DR. SIEGEL WAS PAGED AND CALLED BACK AT 0610. NOTIFIED PATIENT WAS FEBRILE WITH T-MAX OF 104.2 AND HR IN 140'S. ORDERS FOR LACTIC ACID, BLOOD CULTURES AND ZOSYN 3.375GM Q8H.
[2021-10-09 07:47] LABS: ABSOLUTE LYMPHOCYTES 3.5 thou/uL (0.8-5.3); ABSOLUTE NEUTROPHILS 13.9 thou/uL (1.6-8.1); PLATELET ESTIMATE ADEQUATE
[2021-10-09 07:48] LABS: ABSOLUTE MONOCYTES 1.1 thou/uL (0.0-1.2)
[2021-10-09 11:40] LABS: CHOLESTEROL 271 mg/dL (<200); HDL CHOLESTEROL 20 mg/dL (>40); TC:HDL 13.6 Ratio (Not establshd); TRIGLYCERIDE 436 mg/dL (<150); VLDL 87 mg/dL (<40)
[2021-10-09 11:42] LABS: SERUM ASSESSMENT Slight Lipemia
--- NOTE | 2021-10-09 18:49 | NUR ---
PATIENT HAS BE FEBRILE THIS SHIFT. PRN TYLENOL GIVEN. PATIENT CONTINES TO BE FEBRILE. TEMP 103.2 COLD CLOTHES AND ICE PLACED TO COOL. UNSUCCESSFUL WITH INTERVENTIONS. HR 145. HOSPITALIST STONE SPREADER OPERATOR PAGED. REPORT WILL BE GIVEN TO CLINICAL RESEARCH SPEC TO CONTINUE CARE.
[2021-10-10] VITALS (49 sets, daily range): BP systolic 34–150; BP diastolic 28–140
--- NOTE | 2021-10-10 07:24 | NUR ---
REPORT RECIEVED AT BEGINNING OF SHIFT AND CARE ASSUMMED. PT HAD INCREASED HR AND DECREASED BP. ETT INTACT AND PT REMAINS ON VENT. SEE CHARTING FOR SETTING. OGT INTACT AND PATENT WITH 2CAL INFUSING AT 35 CC/HR VIA PUMP ORDERED. PT IS EDEMATOUS.. ZAMORA INTACTA ND PATENT WITH ORANGE COLORED URINE WITH SEDIMENT DRAINING TO BEDSIDE BAG. FECAL MANAGEMENT SYSTEM IN PLACE WITH SMALL AMOUNT OG BROWN SECRETIONS. PT HAD EPISODE THIS AM OF DESATING TO 72%. PT HAD TO BE BAGGED AND REPOSTIONED TO GET SATS TO INCREASE. PT HAS VERY SOFT BPS. SEE EMR FOR SEADTION AND PRESSOR. MONTORS INTACT. WILL CONTINUE TO MONITOR
[2021-10-10 10:24] LABS: HEMATOCRIT 37.5 % (37.0-47.0); HEMOGLOBIN 12.5 gm/dL (12.0-15.0); MCH 35.3 pg (26.0-34.0); MCHC 33.4 g/dL (28.0-37.0); MCV 105.6 fL (80.0-100.0); MPV 9.8 fl. (7.2-11.1); NUCLEATED RBCS 1 /100WBC; PLATELET COUNT* 247 thou/uL (150-400); RBC 3.55 mil/uL (4.20-5.00); RDW-CV 17.6 % (10.5-14.5); WBC 26.4 thou/uL (4.0-11.0)
[2021-10-10 10:50] LABS: ALBUMIN 2.5 g/dL (3.4-5.0); ALKALINE PHOSPHATASE 49 U/L (46-116); ANION GAP 19 mmol/L (7-16); BUN 52 mg/dL (7-18); CALCIUM 6.3 mg/dL (8.5-10.1); CHLORIDE 102 mmol/L (98-107); CO2 20 mmol/L (21-32); CREATININE 1.2 mg/dL (0.6-1.3); GLUCOSE 458 mg/dL (70-99); POTASSIUM 5.3 mmol/L (3.5-5.1); SGOT 14 U/L (15-37); SGPT < 6 U/L (30-65); SODIUM 141 mmol/L (136-145); TOTAL BILIRUBIN 0.8 mg/dL (<0.1-1.0); TOTAL PROTEIN 5.7 g/dL (6.4-8.2)
[2021-10-10 12:03] LABS: ABSOLUTE EOSINOPHILS 1.1 thou/uL (0.0-0.7); ABSOLUTE LYMPHOCYTES 4.2 thou/uL (0.8-5.3); ABSOLUTE MONOCYTES 0.5 thou/uL (0.0-1.2); ABSOLUTE NEUTROPHILS 20.6 thou/uL (1.6-8.1)
[2021-10-10 12:04] LABS: ANISOCYTOSIS 1+; MACROCYTES 1+; PLATELET ESTIMATE ADEQUATE; POIKILOCYTOSIS 1+
--- NOTE | 2021-10-10 14:20 | NUR ---
Pt is not progressing and was having issues with oxygen and heart rate. Dtr is here at the hospital - and family has decided to switch pt to comfort needs. Provide support to dtr until her father and Pastoral Care arrived. CM to continue to follow for discharge needs.
== END 2021-10-10 13:07 | DRG 870 ==
LOC: M.ERS 12:06 → M.ICU 13:32 → M.TBA-ER 13:32 → M.ORTHSURG 13:32 → M.TBA-ER 22:39 → M.ICU 09-20 08:00 → M.ORTHSURG 09-21 17:40 → M.ICU 09-25 19:20
PROVIDERS: Family Medicine; Internal Medicine; Internal Medicine Critical Care Medicine; Nurse Practitioner Family; Pediatrics; Personal Emergency Response Attendant; ADMIT Internal Medicine; ATTEND Internal Medicine
PROC: 5A0935A Assistance with Respiratory Ventilation, Less than 24 Consecutive Hours, High Flow/Velocity Cannula (ICD-10-PCS; principal; 2021-09-18)
PROC: 5A09357 Assistance with Respiratory Ventilation, Less than 24 Consecutive Hours, Continuous Positive Airway Pressure (ICD-10-PCS; principal; 2021-09-18)
PROC: XW033E5 Introduction of Remdesivir Anti-infective into Peripheral Vein, Percutaneous Approach, New Technology Group 5 (ICD-10-PCS; principal; 2021-09-18)
PROC: 5A0935A Assistance with Respiratory Ventilation, Less than 24 Consecutive Hours, High Flow/Velocity Cannula (ICD-10-PCS; 2021-09-19)
PROC: 02HV33Z Insertion of Infusion Device into Superior Vena Cava, Percutaneous Approach (ICD-10-PCS; 2021-09-20)
PROC: 5A1955Z Respiratory Ventilation, Greater than 96 Consecutive Hours (ICD-10-PCS; 2021-09-20)
PROC: 0BH17EZ Insertion of Endotracheal Airway into Trachea, Via Natural or Artificial Opening (ICD-10-PCS; 2021-09-20)
PROC: 03HY32Z Insertion of Monitoring Device into Upper Artery, Percutaneous Approach (ICD-10-PCS; 2021-09-26)
DX: A41.89 Other specified sepsis (principal); U07.1 COVID-19; J12.82 Pneumonia due to coronavirus disease 2019; J80 Acute respiratory distress syndrome; R71.0 Precipitous drop in hematocrit; R57.9 Shock, unspecified; E87.6 Hypokalemia; R43.9 Unspecified disturbances of smell and taste; E87.70 Fluid overload, unspecified; E11.65 Type 2 diabetes mellitus with hyperglycemia; Z51.5 Encounter for palliative care; Z88.2 Allergy status to sulfonamides